=== PATIENT | female | born 1965 | race Hispanic/Latino ===

== ENCOUNTER 2018-01-15 21:41 | Emergency (ER) | payer SELFPAY ==
[~2018-01-15] VITALS: Ht 144.8 cm; Wt 56.0 kg
[2018-01-15] MEDS ORDERED: PERCOCET 5/325M1 TAB PO (22:42)
[2018-01-15] MEDS ORDERED: AMOXICILLIN500 MG PO (22:42)
[2018-01-15 22:50] VITALS: BP 119/74
== END 2018-01-15 23:00 | disposition home or self-care (01) | DRG 159 ==
LOC: ED 21:41
DX: K08.89 Other specified disorders of teeth and supporting structures (principal)

== ENCOUNTER 2018-03-14 00:13 | Observation (INO) | payer SELFPAY ==
[~2018-03-14] VITALS: Ht 144.8 cm; Wt 65.6 kg
[~2018-03-14 00:13] MED LIST: AMOXICILLIN500 MG PO; PERCOCET 5/325M1 TAB PO
--- NOTE | 2018-03-14 00:24 | NUR ---
AMBULATED TO ROOM
[2018-03-14 01:04] LABS: HEMATOCRIT 37.3 % (37.0-47.0); HEMOGLOBIN 13.1 g/dl (12.0-16.0); IMMATURE GRANULOCYTES 0.4 % (0.0-5.0); MEAN CELL VOLUME 91.2 fL CALC (80.0-100.0); MEAN CORPUSCULAR HGB CONC 35.1 g/L CALC (32.0-36.0); NEUT# 3.57 thou/uL (2.00-7.15); RED BLOOD COUNT 4.09 mill/uL (4.20-5.60); RED CELL DISTRI WIDTH 12.8 % (11.5-15.5)
[2018-03-14 01:06] LABS: URINE BILIRUBIN - DIPSTICK NEGATIVE (NEGATIVE); URINE BLOOD DIPSTICK MODERATE (NEGATIVE); URINE COLOR YELLOW; URINE GLUCOSE - DIPSTICK NEGATIVE (NEGATIVE); URINE KETONE NEGATIVE (NEGATIVE); URINE LEUK ESTERASE NEGATIVE (NEGATIVE); URINE NITRITE - DIPSTICK NEGATIVE (Negative); URINE PROTEIN - DIPSTICK NEGATIVE (NEG-TRACE); URINE SPECIFIC GRAVITY <=1.005; URINE UROBILINOGEN - DIPSTICK 0.2 E.U./dL (0.2)
[2018-03-14 01:28] LABS: URINE WBC 0-2 WBC/hpf (0-5)
[2018-03-14 01:42] LABS: ALBUMIN 3.9 g/dL (3.2-5.0); ALKALINE PHOSPHATASE 132 u/l (38-126); AMYLASE 57 u/l (30-110); ANION GAP 15 (6-22 (CALC)); BILIRUBIN, TOTAL 0.2 mg/dL (0.0-1.4); BUN 9 mg/dL (7-17); BUN/CREATININE RATIO 25 (12-20 (CALC)); CARBON DIOXIDE 22 mmol/l (22-30); CHLORIDE 107 mmol/l (95-108); CREATININE 0.4 mg/dL (0.5-1.0); GFR > 60 ML/MIN (>=60 (CALC)); GFR FOR AFR.AMER. > 60 ML/MIN (>=60 (CALC)); LIPASE 102 u/l (23-300); POTASSIUM 3.5 mmol/l (3.5-5.1); SGOT/AST 40 u/l (14-36); SODIUM 140 mmol/l (137-146); TOTAL PROTEIN 7.1 g/dL (6.3-8.2)
--- NOTE | 2018-03-14 01:59 | NUR ---
PT. STATES HER ABD. PAIN IS NOW DECREASED TO A 5 ON A SCALE OF 1-10.
--- NOTE | 2018-03-14 02:59 | NUR ---
PT. RESTING ON STRETCHER, NO C/O AT THIS TIME.
--- NOTE | 2018-03-14 03:59 | NUR ---
IVF INFUSING WELL, NO REDNESS OR EDEMA NOTED.
--- NOTE | 2018-03-14 04:30 | NUR ---
IN ROOM TO DISCUSS CLINICAL FINDINGS WITH PT. AND FAMILY, IN POARCH LANGUAGE OF [place], VERBALIZED UNDERSTANDING.
--- NOTE | 2018-03-14 05:40 | NUR ---
Admission Note Report Given to: BON HAUSER Transported by: Wheelchair X Stretcher Transported with: X Nurse Transporter X Patent IV O2 Formulation Scientist
--- NOTE | 2018-03-14 05:42 | NUR ---
PT. TRANSFERED TO [place] FLOOR VIA STRETCHER, NO C/O.
[2018-03-14 05:46] VITALS: BP 113/67
--- NOTE | 2018-03-14 07:06 | NUR ---
REPORT RECEIVED BY TANESHA. PT IS SLEEPING IN BED WITH NO S/S OF DISTRESS NOTED. FAMILY IN ROOM AND CALL LIGHT IN REACH.
[2018-03-14 08:00] VITALS: BP 91/56
--- NOTE | 2018-03-14 08:39 | NUR ---
ASSESSMENT DONE . RESPS EVEN AND UNLABORED. PT IS A&O X3. PT STATED PAIN IN ABD 07/22 BUT DENIES PAIN MEDICATION AT THIS TIME. NS 125ML/HR INFUSING WELL . PT DENIES NEEDS AT THIS TIME. SAFETY PRECAUTIONS REINFORCED AND CALL LIGHT IN REACH.
--- NOTE | 2018-03-14 12:03 | NUR ---
PT STATED HAS A HEADACHE BUT REFUSED PAIN MEDICATION AT THIS TIME. COOL WASHCLOTH PROVIDED. FAMILY IN ROOM. CALL LIGHT IN REACH.
--- NOTE | 2018-03-14 14:17 | NUR ---
DR. CAMILO AT BEDSIDE TO ASSESS PT.
[2018-03-14 15:41] VITALS: BP 101/63
--- NOTE | 2018-03-14 16:30 | NUR ---
PT IS RESTING IN BED. PT STATED PAIN IS LESS IN HER ABD. PT DENIES NEEDS AT THIS TIME. CALL LIGHT IN REACH.
[2018-03-14 19:10] VITALS: BP 94/57
--- NOTE | 2018-03-14 20:13 | NUR ---
PT RESTING IN BED WITH EYES OPEN. PT DENIES PAIN .POC DISCUSSED WITH PT. BALBIR TO TRANSLATE. NO DISTRESS NOTED. PT VOICED UNDERSTANDING. WILL CONTINUE TO MONITOR.
--- NOTE | 2018-03-15 01:00 | NUR ---
PT RESTING IN BED WITH EYES CLOSED. NO FURTHER COMPLAINTS OF PAIN VOICED. IV PATENT. BED IN LOWEST POSTION. CALLLIGHT IN REACH. FAMILY CAME UP SHORTHLY AFTER MIDNIGHT TO SAY HAPPY NEW YEARS. WILL MONITOR.
--- NOTE | 2018-03-15 04:00 | NUR ---
PT RESTING IN BED WITH EYES CLOSED. NO PAIN OR DISTRESS NOTED. WILL MONITOR.
[2018-03-15 04:04] VITALS: BP 102/59
--- NOTE | 2018-03-15 07:00 | NUR ---
SHIFT REPORT, PT AWAKE ALERT AND ORIENTED, AMBULATE WITH ASSIST TO BR, IVF INFUSING, C/O ABD PAIN WHEN SITTING, STANDING OR AMBULATING BUT FULLY RELIEVED WHEN LYING SUPINE, REPORTED SCANT BM, WILL CONTINUE TO MONITOR, CALL ZAMORA IN REACH.
[2018-03-15 08:10] VITALS: BP 107/49
[2018-03-15] MEDS ORDERED: COLACE100 MG PO (11:33)
--- NOTE | 2018-03-15 13:32 | NUR ---
PT REFUSING TO HAVE SUPPOSITORY AT THIS TIME AND WANTS TO WAIT AND TRY HAVING NORMAL BM, ADVISED OF DELAYS BUT SHE STILL WANTS TO WAIT.
[2018-03-15 16:05] VITALS: BP 94/59
--- NOTE | 2018-03-15 18:46 | NUR ---
Discharge instructions given. Patient verbalizes understanding of same. Discharged in stable condition via Ambulatory to Home with family. All belongings sent with pt.
== END 2018-03-15 18:39 | disposition home or self-care (01) | DRG 390 ==
LOC: ED 00:13 → ED-I 04:55 → ED 05:16 → MS2 05:17
PROVIDERS: Emergency Medicine; ADMIT Internal Medicine; ATTEND Internal Medicine
DX: K56.600 Partial intestinal obstruction, unspecified as to cause (principal); Z87.898 Personal history of other specified conditions
CPT/HCPCS: G0378; S0164

== ENCOUNTER 2019-08-02 13:10 | Observation (INO) | payer SELFPAY ==
[~2019-08-02] VITALS: Ht 152.4 cm; Wt 68.1 kg
[~2019-08-02 13:10] MED LIST changes: +COLACE100 MG PO
--- NOTE | 2019-08-02 13:10 | NUR ---
PT AMB TO ROOM WITH STEADY GAIT
[2019-08-02 13:51] LABS: HEMATOCRIT 35.6 % (37.0-47.0); HEMOGLOBIN 12.1 g/dl (12.0-16.0); IMMATURE GRANULOCYTES 0.2 % (0.0-5.0); MEAN CELL VOLUME 91.5 fL CALC (80.0-100.0); MEAN CORPUSCULAR HGB 31.1 pG CALC (26.0-32.0); NEUT# 3.43 thou/uL (2.00-7.15); RED BLOOD COUNT 3.89 mill/uL (4.20-5.60); RED CELL DISTRI WIDTH 12.4 % (11.5-15.5)
[2019-08-02 14:03] LABS: ALBUMIN 4.1 g/dL (3.2-5.0); ALKALINE PHOSPHATASE 77 u/l (38-126); ANION GAP 10 (6-22 (CALC)); BUN 13 mg/dL (7-17); BUN/CREATININE RATIO 25 (12-20 (CALC)); CARBON DIOXIDE 25 mmol/l (22-30); CHLORIDE 111 mmol/l (95-108); CREATININE 0.5 mg/dL (0.5-1.0); GFR > 60 ML/MIN (>=60 (CALC)); GFR FOR AFR.AMER. > 60 ML/MIN (>=60 (CALC)); LIPASE 56 u/l (23-300); POTASSIUM 3.5 mmol/l (3.5-5.1); SGOT/AST 22 u/l (14-36); SODIUM 142 mmol/l (137-146); TOTAL PROTEIN 7.1 g/dL (6.3-8.2)
[2019-08-02 14:08] LABS: BILIRUBIN, TOTAL 0.3 mg/dL (0.0-1.4)
--- NOTE | 2019-08-02 14:10 | NUR ---
PT RESTING ON STRETCHER; NO S/S OF DISTRESS NOTED; PT DENIES ANY NEEDS AT THIS TIME; VSS; WILL CONTINUE TO MONITOR
[2019-08-02 14:28] LABS: URINE BILIRUBIN - DIPSTICK NEGATIVE (NEGATIVE); URINE BLOOD DIPSTICK MODERATE (NEGATIVE); URINE COLOR YELLOW; URINE GLUCOSE - DIPSTICK NEGATIVE (NEGATIVE); URINE KETONE NEGATIVE (NEGATIVE); URINE LEUK ESTERASE NEGATIVE (NEGATIVE); URINE NITRITE - DIPSTICK NEGATIVE (Negative); URINE PH 5.5 (4.5-8.0); URINE PROTEIN - DIPSTICK NEGATIVE (NEG-TRACE); URINE SPECIFIC GRAVITY >=1.030; URINE UROBILINOGEN - DIPSTICK 0.2 E.U./dL (0.2)
[2019-08-02 14:37] LABS: URINE SQUAMOUS EPITHELIAL CELL FEW EPI/hpf (0-FEW)
--- NOTE | 2019-08-02 15:10 | NUR ---
PT RESTING ON STRETCHER WITH EYES CLOSED; WILL CONTINUE TO MONITOR
--- NOTE | 2019-08-02 15:42 | NUR ---
PT RESTING ON STRETCHER; NO S/S OF DISTRESS NOTED; PT STATES WILEY IS BETTER AT THIS TIME; VSS; ADVISED OF CONTINUED WAIT TIME; WILL CONTINUE TO MONITOR
--- NOTE | 2019-08-02 16:37 | NUR ---
DR GRUBBS AT BEDSIDE TO DISCUSS POC AND FINDINGS
--- NOTE | 2019-08-02 17:20 | NUR ---
Admission Note Report Given to: CHELSEA RASHEED Transported by: X Wheelchair Stretcher Transported with: X Nurse Transporter X Patent IV O2 X Cans Vacuum Tester Location: ICU X MS2
--- NOTE | 2019-08-02 17:20 | NUR ---
PT ARRIVED TO MED/SURG ROOM 289 IN STABLE CONDITION VIA WHEELCHAIR ACCOMPANIED BY ANALISA AVENDAÑO;PT A&O X3,ROMANIAN SPEAKING;TRANSLATION PROVIDED BY CHELSEA VERONICA;PT DENIES ANY CURRENT PAIN OR DISCOMFORTS,PAIN SCALE AND REPORTING EDUCATED;RESPIRATIONS EVEN AND UNLABORED ON RA,CLEAR LUNG SOUNDS;ABDOMEN SOFT ON PALPATION AND ACTIVE IN ALL 4 QUADRANTS;STRONG PEDAL PULSES;SKIN INTACT;TELE MONITORING IN PLACE;#20G TO LAC FLUSHED AND PATENT,NS TO BE STARTED TO 100ML/HR PER ORDER;ALL SAFETY PRECAUTIONS IN PLACE INCLUDING ISOLATION PRECAUTIONS R/T COVID 19;PT DENIES ANY ADDITIONAL NEEDS AT THIS TIME AND IS ENCOURAGED TO CALL FOR ASSISTANCE IF NEEDED;FALL PRECAUTIONS IN PLACE WITH BED IN THE LOWEST POSITION AND CALL LIGHT IN REACH;WILL CONTINUE TO MONITOR
[2019-08-02 18:16] VITALS: BP 103/59
--- NOTE | 2019-08-02 21:00 | NUR ---
ASSESSMENT COMPLETED. IV SITE PATENT AND ORDERED IVF INFUSING WELL. NO DISTRESS NOTED; PO FLUIDS GIVEN. PT. DENIES NEEDS/PAIN. TROPONIN OBTAINED PER ORDER. TELEMETRY IN PLACE. VSS. ENCOURAGED TO CALL FOR ANY NEED.S UPDATED ON POC.
[2019-08-02 21:01] VITALS: BP 101/57
[2019-08-02 23:55] VITALS: BP 106/57
--- NOTE | 2019-08-03 | NUR ---
PT. RESTING IN BED WITH EYES OPEN AND C/O WILEY AND MEDICATED WITH ORDERED TYLENOL, WILL REASSESS. VSS. ENCOURAGED TO CALL FOR ANY NEEDS. CALL LIGHT IS IN REACH.
--- NOTE | 2019-08-03 02:35 | NUR ---
PT. RESTING IN BED WITH NO DISTRESS NOTED; DENIES NEEDS/PAIN. SCHED AM LABS DRAWN PER ORDER. ENCOURAGED TO CALL FOR ANY NEEDS. CALL LIGHT IS IN REACH.
[2019-08-03 02:47] LABS: HEMATOCRIT 33.9 % (37.0-47.0); HEMOGLOBIN 11.4 g/dl (12.0-16.0); IMMATURE GRANULOCYTES 0.1 % (0.0-5.0); MEAN CELL VOLUME 92.1 fL CALC (80.0-100.0); MEAN CORPUSCULAR HGB CONC 33.6 g/dL CAL (32.0-36.0); NEUT# 3.2 thou/uL (2.00-7.15); RED BLOOD COUNT 3.68 mill/uL (4.20-5.60); RED CELL DISTRI WIDTH 12.3 % (11.5-15.5)
[2019-08-03 03:00] LABS: ALBUMIN 3.4 g/dL (3.2-5.0); ALKALINE PHOSPHATASE 74 u/l (38-126); ANION GAP 9 (6-22 (CALC)); BILIRUBIN, TOTAL 0.2 mg/dL (0.0-1.4); BUN 11 mg/dL (7-17); BUN/CREATININE RATIO 23 (12-20 (CALC)); CALCULATED LDLCHOLESTEROL 68 mg/dL (62-129 (CALC)); CARBON DIOXIDE 23 mmol/l (22-30); CHLORIDE 112 mmol/l (95-108); CHOLESTEROL HDL RATIO 5.6 (<4.4 (CALC)); CREATININE 0.5 mg/dL (0.5-1.0); GFR > 60 ML/MIN (>=60 (CALC)); GFR FOR AFR.AMER. > 60 ML/MIN (>=60 (CALC)); HDL CHOLESTEROL 25 mg/dL (>=40); POTASSIUM 3.8 mmol/l (3.5-5.1); SGOT/AST 23 u/l (14-36); SODIUM 140 mmol/l (137-146); TOTAL CHOLESTEROL 139 mg/dl (0-199); TOTAL PROTEIN 6.1 g/dL (6.3-8.2); TOTAL TRIGLYCERIDES 232 mg/dl (30-149); VLDL CHOLESTROL 46 mg/dl (2-49 (CALC))
[2019-08-03 04:27] LABS: C-REACTIVE PROTEIN < 0.5 mg/dL (0-0.9); MAGNESIUM 1.9 mg/dL (1.6-2.3)
[2019-08-03 04:30] VITALS: BP 105/55
--- NOTE | 2019-08-03 05:10 | NUR ---
LAB OBTAINED. DENIES NEEDS/PAIN. ENCOURAGED TO CALL FOR ANY NEEDS.
[2019-08-03 09:14] VITALS: BP 107/60
--- NOTE | 2019-08-03 09:14 | NUR ---
RECIEVED REPORT FROM ANALISA REESE. PT RESTING IN SEMI FOWLERS POSITION WATCHING TV UPON ENTERING THE ROOM. INTRODUCED SELF TO PT AND DISCUSSED POC. PT IS A/O X3 AND AMBULARTORY. PT IS [place]ET[place]ESE SPEKAING. HEART RHYTHM NORMAL, LUNG SOUNDS CLEAR, AND BOWEL SOUNDS ACTIVE IN ALL QUADRANTS. VITALS OBTAINED. BP 107/60, HR 58, AND O2 97% ON ROOM AIR. PT COMPLAINED OF A 2/10 HEADACHE. TYLENOL WAS ADMINISTERED.RADILAL AND PEDAL PULSES ARE STRONG WITH NORMAL CAPILLARY REFILLS. NO EDEMA IN ANY EXTREMIEITES. PT DENIES ANY OTHER PAINS OR DISCOMFORTS AT THIS TIME. ALL SAFTEY PRECAUTIONS IN PLACE WITH CALL LIGHT IN REACH. WILL CONTINUE TO MONITOR PAIN AND PT.
[2019-08-03 10:55] VITALS: BP 103/60
--- NOTE | 2019-08-03 12:00 | NUR ---
PT RESTING IN SEMI FOWLERS POSITION. PT EXPRESSES THAT TYLENOL DID WORK. BREATHING IS EVEN AND UNLABORED. PT DENIES ANY OTHER PAINS OR DISCOMFORTS AT THIS TIME. ALL SAFTEY PRECAUTIONS IN PLACE WITH CALL LIGHT IN REACH.
[2019-08-03 15:21] VITALS: BP 105/57
--- NOTE | 2019-08-03 16:15 | NUR ---
DISCHARGE INSTRUCTIONS AND EDUCATION GIVEN TO PT, TRANSLATED BY CHELSEA RIVERA. PT VERBALIZED UNDERSTANDING. IV REMOVED AT THIS TIME, PT TOLERATED WELL. WAITING FOR RIDE. ALL SAFTEY PRECAUTIONS IN PLACE WITH CALL LIGHT IN REACH. WILL CONTINUE TO MONITOR.
--- NOTE | 2019-08-03 17:16 | NUR ---
Discharge instructions given. Patient verbalizes understanding of same. Discharged in stable condition via Wheelchair to Home with family. All belongings sent with pt. PT LEFT VIA WHEELCHAIR IN STABLE CONDITION ACCOMPAINED BY CHELSEA WATSON. PT LEFT WITH ALL BELONGINGS AND DISCHARGE INSTRUCTIONS.
--- NOTE | 2019-08-06 08:58 | NUR ---
Patient called with results of test. Sylwia Wellington approved on language list interpreted instructions. patient verbally acknowledged instructions and thanked staff for informing her. Isolation/quarantine means to stay separate from other people, so that sickness You have been tested for the virus that causes COVID-19, you must stay at home and isolate yourself until the test results are returned. Isolation/quarantine means to stay separate from other people, so that sickness is not spread. Depending on your test results, you will either be allowed to return to regular activity, or will have to continue isolation/quarantine until the Health Department instructs you to stop. Follow these guidelines while in isolation: Stay home: Stay in your home or apartment until you are instructed that you can leave. If you need medical care, call ahead so that staff can prepare for your arrival. DO NOT go to your doctors office, an ER or urgent care center without informing them that you are coming, and that you have the coronavirus or have been tested. (Call 911 if you have a medical emergency, and tell them you may have coronavirus.) Avoid public areas: Do not go to work, school or any public areas. This includes, but is not limited to, activities such as going to the grocery store, walking the dog, visiting the laundromat, going to the movies, picking up food, and attending yazidism. STAY HOME!!!!! Having a negative test does not mean you can't still catch Covid-19. Please continue to comply with social distancing guidelines, hand hygiene, and wearing masks in public as directed by the CDC.
== END 2019-08-03 17:16 | disposition home or self-care (01) | DRG 179 ==
LOC: ED 13:10 → ED-I 15:40 → ED 16:30 → ED-I 16:31 → MS2 17:04
PROVIDERS: Family Medicine; Nurse Practitioner Family; ADMIT Internal Medicine; ATTEND Internal Medicine
DX: U07.1 COVID-19 (principal); R07.9 Chest pain, unspecified; I10 Essential (primary) hypertension
CPT/HCPCS: G0378; Q9967

== ENCOUNTER 2019-10-01 01:20 | Emergency (ER) | payer SELFPAY ==
[~2019-10-01] VITALS: Ht 147.3 cm; Wt 68.1 kg
[2019-10-01 02:19] LABS: HEMOGLOBIN 12.1 g/dl (12.0-16.0); IMMATURE GRANULOCYTES 0.1 % (0.0-5.0); MEAN CELL VOLUME 91.8 fL CALC (80.0-100.0); MEAN CORPUSCULAR HGB 30.9 pG CALC (26.0-32.0); MEAN CORPUSCULAR HGB CONC 33.6 g/dL CAL (32.0-36.0); NEUT# 3.78 thou/uL (2.00-7.15); RED BLOOD COUNT 3.92 mill/uL (4.20-5.60); RED CELL DISTRI WIDTH 12.4 % (11.5-15.5)
[2019-10-01 02:20] LABS: URINE BILIRUBIN - DIPSTICK NEGATIVE (NEGATIVE); URINE BLOOD DIPSTICK TRACE-INTACT (NEGATIVE); URINE COLOR YELLOW; URINE GLUCOSE - DIPSTICK NEGATIVE (NEGATIVE); URINE KETONE NEGATIVE (NEGATIVE); URINE LEUK ESTERASE TRACE (NEGATIVE); URINE NITRITE - DIPSTICK NEGATIVE (Negative); URINE PROTEIN - DIPSTICK TRACE mg/dL (NEG-TRACE); URINE SPECIFIC GRAVITY >=1.030; URINE UROBILINOGEN - DIPSTICK 0.2 E.U./dL (0.2)
[2019-10-01 02:32] LABS: ALKALINE PHOSPHATASE 95 u/l (38-126); ANION GAP 11 (6-22 (CALC)); BUN 20 mg/dL (7-17); BUN/CREATININE RATIO 34 (12-20 (CALC)); C-REACTIVE PROTEIN 0.8 mg/dL (0-0.9); CARBON DIOXIDE 27 mmol/l (22-30); CHLORIDE 105 mmol/l (95-108); CREATININE 0.6 mg/dL (0.5-1.0); GFR > 60 ML/MIN (>=60 (CALC)); GFR FOR AFR.AMER. > 60 ML/MIN (>=60 (CALC)); MAGNESIUM 2.3 mg/dL (1.6-2.3); POTASSIUM 3.8 mmol/l (3.5-5.1); SGOT/AST 31 u/l (14-36); SODIUM 139 mmol/l (137-146)
[2019-10-01 02:33] LABS: ALBUMIN 4.4 g/dL (3.2-5.0); BILIRUBIN, TOTAL 0.3 mg/dL (0.0-1.4); TOTAL PROTEIN 7.7 g/dL (6.3-8.2)
[2019-10-01 02:40] VITALS: BP 90/51
== END 2019-10-01 02:50 | disposition home or self-care (01) | DRG 866 ==
LOC: ED 01:20
PROVIDERS: Family Medicine
DX: B34.9 Viral infection, unspecified (principal); I10 Essential (primary) hypertension; Z86.19 Personal history of other infectious and parasitic diseases

== ENCOUNTER 2019-11-26 21:42 | Emergency (ER) | payer SELFPAY ==
[~2019-11-26] VITALS: Ht 147.3 cm; Wt 61.6 kg
[2019-11-26 22:35] LABS: HEMATOCRIT 36.2 % (37.0-47.0); HEMOGLOBIN 12.2 g/dl (12.0-16.0); IMMATURE GRANULOCYTES 0.1 % (0.0-5.0); MEAN CELL VOLUME 91.6 fL CALC (80.0-100.0); MEAN CORPUSCULAR HGB 30.9 pG CALC (26.0-32.0); MEAN CORPUSCULAR HGB CONC 33.7 g/dL CAL (32.0-36.0); NEUT# 2.74 thou/uL (2.00-7.15); RED BLOOD COUNT 3.95 mill/uL (4.20-5.60)
[2019-11-26 22:49] LABS: D-DIMER 0.36 mg/L (0.19-0.60)
[2019-11-26 22:53] LABS: ALBUMIN 4.5 g/dL (3.2-5.0); ALKALINE PHOSPHATASE 102 u/l (38-126); AMYLASE 58 u/l (30-110); ANION GAP 11 (6-22 (CALC)); BILIRUBIN, TOTAL 0.3 mg/dL (0.0-1.4); BUN 10 mg/dL (7-17); BUN/CREATININE RATIO 17 (12-20 (CALC)); C-REACTIVE PROTEIN 0.7 mg/dL (0-0.9); CARBON DIOXIDE 25 mmol/l (22-30); CHLORIDE 105 mmol/l (95-108); CPK 72 u/l (30-165); CREATININE 0.6 mg/dL (0.5-1.0); GFR > 60 ML/MIN (>=60 (CALC)); GFR FOR AFR.AMER. > 60 ML/MIN (>=60 (CALC)); LIPASE 71 u/l (23-300); MAGNESIUM 2.3 mg/dL (1.6-2.3); POTASSIUM 3.8 mmol/l (3.5-5.1); SGOT/AST 27 u/l (14-36); SODIUM 137 mmol/l (137-146); TOTAL PROTEIN 7.3 g/dL (6.3-8.2)
[2019-11-26 23:03] LABS: MYOGLOBIN 14 ng/mL (0 - 62)
[2019-11-26 23:21] LABS: TSH, 3RD GENERATION 2.35 uIU/mL (0.47 - 4.68)
[2019-11-26 23:27] LABS: ACT PARTIAL THROMBO TIME 27.5 SECONDS (20.0-32.5); PROTHROMBIN TIME 10.4 SECONDS (9.0-12.5)
[2019-11-27] MEDS ORDERED: VOLTAREN - GENE75 MG PO (00:02)
[2019-11-27 00:30] VITALS: BP 140/67
== END 2019-11-27 00:30 | disposition home or self-care (01) | DRG 313 ==
LOC: ED 21:42
PROVIDERS: Family Medicine
DX: R07.89 Other chest pain (principal); M79.10 Myalgia, unspecified site; M25.50 Pain in unspecified joint; I10 Essential (primary) hypertension; Z86.19 Personal history of other infectious and parasitic diseases

== ENCOUNTER 2020-08-18 23:37 | Observation (INO) | payer SELFPAY ==
[~2020-08-18] VITALS: Ht 152.4 cm; Wt 65.0 kg
[~2020-08-18 23:37] MED LIST changes: +VOLTAREN - GENE75 MG PO
--- NOTE | 2020-08-18 23:38 | NUR ---
BY EMS TO ROOM
--- NOTE | 2020-08-19 00:20 | NUR ---
PATIENT REPORTS WORKING IN THE [employer] FOR PAST 3 MONTHS AND SYMPTOMS SEEM RO BE GETTING WORSE SINCE GETTING WET DURING IRRIGATION OF THE [employer]
[2020-08-19 00:21] LABS: HEMATOCRIT 35.5 % (37.0-47.0); HEMOGLOBIN 11.8 g/dl (12.0-16.0); IMMATURE GRANULOCYTES 0.2 % (0.0-5.0); MEAN CELL VOLUME 92.4 fL CALC (80.0-100.0); MEAN CORPUSCULAR HGB 30.7 pG CALC (26.0-32.0); MEAN CORPUSCULAR HGB CONC 33.2 g/dL CAL (32.0-36.0); NEUT# 4.7 thou/uL (2.00-7.15); RED BLOOD COUNT 3.84 mill/uL (4.20-5.60)
[2020-08-19 00:39] LABS: ALKALINE PHOSPHATASE 99 u/l (38-126); ANION GAP 11 (6-22 (CALC)); BUN 23 mg/dL (7-17); BUN/CREATININE RATIO 40 (12-20 (CALC)); CARBON DIOXIDE 26 mmol/l (22-30); CHLORIDE 106 mmol/l (95-108); CREATININE 0.6 mg/dL (0.5-1.0); GFR > 60 ML/MIN (>=60 (CALC)); GFR FOR AFR.AMER. > 60 ML/MIN (>=60 (CALC)); MAGNESIUM 2.2 mg/dL (1.6-2.3); POTASSIUM 3.4 mmol/l (3.5-5.1); SGOT/AST 30 u/l (14-36); SODIUM 139 mmol/l (137-146); TOTAL PROTEIN 7.2 g/dL (6.3-8.2)
[2020-08-19 00:51] LABS: BILIRUBIN, TOTAL 0.1 mg/dL (0.0-1.4)
[2020-08-19 01:00] LABS: MYOGLOBIN 14 ng/mL (0 - 62)
[2020-08-19 01:26] LABS: D-DIMER 0.44 mg/L (0.19-0.60); PROTHROMBIN TIME 10.7 SECONDS (9.0-12.5)
--- NOTE | 2020-08-19 03:00 | NUR ---
PATIENT BEING ADMITTED TO BE HOUSED IN ER OVER NIGHT.
[2020-08-19 04:18] VITALS: BP 96/58
--- NOTE | 2020-08-19 05:25 | NUR ---
RESTING WITH EYES CLOSED. NO DISTRESS. NO COMPLAINTS.
--- NOTE | 2020-08-19 06:37 | NUR ---
WARM BLANKETS PROVIDED. PT C/O BEING COLD. TELE BOX [id number] IN USE
--- NOTE | 2020-08-19 06:41 | NUR ---
RECIEVED REPORT FROM ANALISA SMITH
--- NOTE | 2020-08-19 06:42 | NUR ---
REPORT GIVEN TO LYNNE Lizarraga LPN FOR ADMIT TO FLOOR.
--- NOTE | 2020-08-19 06:56 | NUR ---
REPORT GIVEN TO ANALISA VALIENTE IN ER- AWAITING BED ASSIGNMENT FOR FLOOR.
--- NOTE | 2020-08-19 07:00 | NUR ---
REPORT RECEIVED FROM ANALISA SMITH. PT GIDEON. AWAITING ROOM ASSIGNMENT.
--- NOTE | 2020-08-19 08:05 | NUR ---
PT CONSUMED BREAKFAST, VITALS STABLE, TELE IN PLACE, REPORT GIVEN ON PRIOR SHIFT TO [facility].
--- NOTE | 2020-08-19 08:20 | NUR ---
PT ARRIVED TO [facility] ROOM 279 IN STABLE CONDITION. PT IS A/O X3. AND BANGLADESHI SPEAKING ONLY. [facility] STAFF TO ASSIST WITH TRANSLATION. ASSESSMENT AND VITALS COMPLETED. BP 95/47, HR 64, O2 92% ON ROOM AIR. REPSIRATIONS ARE EVEN AND UNLABORED WITH NO DISTRESS NOTED. LUNG SOUNDS CLEAR. HEART RHYTHM NORMAL WITH TELE IN PLACE. BOWEL SOUNDS ARE ACTIVE. #20G EMS LAC FLUSHED, SITE APPEARS HEALTHY AND PATENT. SKIN INTACT. RADIAL AND PEDAL PULSES STRONG. PT COMPLAINS OF 6/10 HEADACHE, ORDERS TO BE OBTAINED.NITRO PASTE REMOVED. PT DENIES OF ANY OTHR NEEDS AT THIS TIME. ALL SAFETY PRECAUTIONS ARE IN PLACE WITH CALL LIGHT IN REACH. WILL CONTINUE TO MONITOR.
[2020-08-19 08:41] VITALS: BP 95/47
--- NOTE | 2020-08-19 10:30 | NUR ---
LAB AT BEDSIDE
[2020-08-19 10:50] VITALS: BP 95/53
--- NOTE | 2020-08-19 11:42 | NUR ---
DR VAZQUEZ AT BEDSIDE
--- NOTE | 2020-08-19 12:05 | NUR ---
PT SIITING UP ON SIDE OF BED EATING LUNCH. RESPIRATIONS ARE EVEN AND UNLABORED ON ROOM AIR. #20G IN LAC REMAINS. TELE MONITORING IN PLACE. PT C/O OF GENERALIZED PAIN. PT TO BE MEDICATED PER EMAR. PT DENIES OF ANY ADDITIONAL NEEDS AT THIS TIME. ALL SAFETY PRECAUTIONS ARE IN PLACE WITH CALL LIGHT IN REACH. WILL CONTINUE TO MONITOR.
--- NOTE | 2020-08-19 14:20 | NUR ---
REASSESSMENT OF PAIN RESULTING IN 2. PT STATES MEDICATION HAS HELPED. DENNIS ASSSITED WITH TRANSLATION OVER THE PHONE.
--- NOTE | 2020-08-19 14:29 | NUR ---
LAB AT BEDSIDE
[2020-08-19 15:00] VITALS: BP 111/63
--- NOTE | 2020-08-19 16:33 | NUR ---
PT RESTING IN SEMI FOWLERS POSITION WITH VISITOR AT BEDSIDE. #20G LAC REMAINS IN PLACE, SITE APPEARS HEALTHY AND PATENT. RESPIRATIONS ARE EVEN AND UNLABORED WITH NO DISTRESS NOTED. TELE MONITORING IN PLACE. PT DENIES OF ANY NEEDS AT THIS TIME. ALL SAFTEY PRECAUTIONS ARE IN PLACE WITH CALL LIGHT IN REACH. WILL CONTINUE TO MONITOR.
--- NOTE | 2020-08-19 17:10 | NUR ---
#20G RAC REMOVED WITH CATHATER STILL INTACT. #20G RC STARTED, SITE APPEARS HEALTHY AND PATENT.
[2020-08-19 19:00] VITALS: BP 105/60
--- NOTE | 2020-08-19 19:00 | NUR ---
RECIEVED REPORT FROM NURSE ARAVIND, PATIENT RESTING AWAKE BREATHING UNLABORED. CURRENTLY WATCHING TV, ASSUMED PATIENT CARE.
--- NOTE | 2020-08-19 21:00 | NUR ---
PATIENT RESTING IN BED, WITH SALINE LOCK ON RAC PATENT FLUSHES WELL, REMAINS ON TELEMETRY SR 82, LUNG SOUNDS CLEAR, STATED THAT INTENSITY OF PAIN "POQUITO" PAINSCALE OF 2/10, RELIEF FROM EARLIER PAIN MEDICATION, ACTIVE BOWEL SOUNDS ON ALL QUADRANTS LBM 6/7, WILL CONTINUE TO MONITOR.
--- NOTE | 2020-08-19 23:55 | NUR ---
PATIENT RESTING IN BED WITH EYES CLOSED, BREATHING EVEN UNLABORED, CALL LIGHT AT REACH.
[2020-08-20] VITALS: BP 102/55
--- NOTE | 2020-08-20 03:46 | NUR ---
PATIENT APPEARS TO BE SLEEPING WITH EYES CLOSED, BREATHING EVEN UNLABORED, NO DISCOMFORTS NOTED AT THIS TIME CALL LIGHT AT REACH.
[2020-08-20 04:00] VITALS: BP 92/57
[2020-08-20 05:17] LABS: CHOLESTEROL HDL RATIO 6.2 (<4.4 (CALC))
[2020-08-20 07:30] VITALS: BP 95/51
--- NOTE | 2020-08-20 07:37 | NUR ---
REPORT REC FROM Epifanio FRANCISCO RN. PT SLEEPING IN BED. AWAKENED TO COMPLETE ASSESSMENT. A&O X4. NO DISTRESS NOTED. PT DENIES ANY CURRENT CP AT THIS TIME. HOSPITAL ADMISSIONS OFFICER IN PLACE, CURRENTLY SB WITH A RATE OF 57 BPM. RESPIRATIONS EVEN AND UNLABORED. CLEAR BREATH SOUNDS UPON AUSCULTATION. ACTIVE BOWEL SOUNDS X4 QUADRANTS. #20 RAC HEALTHY AND PATENT, FLUSHES WITH EASE. ASSESSMENT COMPLETED. NO OTHER NEEDS AT THIS TIME. DISCUSSED POC. CALL LIGHT AND PERSONAL BELONGINGS WITHIN REACH.
[2020-08-20 10:58] VITALS: BP 96/54
[2020-08-20] MEDS ORDERED: MEDDOSEPAK PO (11:32)
[2020-08-20] MEDS ORDERED: IBUPROFEN600 MG PO (11:32)
--- NOTE | 2020-08-20 11:59 | NUR ---
PT LAYING IN BED. NO DISTRESS NOTED. CALL LIGHT WITHIN REACH.
[2020-08-20 15:24] VITALS: BP 97/54
--- NOTE | 2020-08-20 16:25 | NUR ---
PT UPDATED ON D/C PLANNING, PER PT HER RIDE HOME WILL BE AVAILABLE AFTER 1700. NO OTHER NEEDS AT THIS TIME. CALL LIGHT WITHIN REACH.
--- NOTE | 2020-08-20 18:10 | NUR ---
PT UPDATED THIS WRITTER REGARING TRANSPORTATION. PER PT TRANSPORTATION WILL BE ON THEIR WAY.
--- NOTE | 2020-08-20 18:20 | NUR ---
Discharge instructions given. Patient verbalizes understanding of same. Discharged in stable condition via Wheelchair to Home with staff. All belongings sent with pt.
== END 2020-08-20 18:20 | disposition home or self-care (01) | DRG 313 ==
LOC: ED 23:37 → ED-I 08-19 02:37 → ED 08-19 02:48 → ED-I 08-19 02:49 → MS2 08-19 07:43
PROVIDERS: Family Medicine; ADMIT Internal Medicine; ATTEND Internal Medicine
DX: R07.89 Other chest pain (principal); M25.50 Pain in unspecified joint; M79.10 Myalgia, unspecified site; I10 Essential (primary) hypertension; Z86.16 Personal history of COVID-19; Z20.822 Contact with and (suspected) exposure to COVID-19
CPT/HCPCS: G0378; J1650

== ENCOUNTER 2020-10-11 15:29 | Emergency (ER) | payer OTHER ==
[~2020-10-11] VITALS: Ht 152.4 cm; Wt 59.0 kg
[~2020-10-11 15:29] MED LIST changes: +IBUPROFEN600 MG PO; +MEDDOSEPAK PO
[2020-10-11 16:24] LABS: HEMATOCRIT 34.6 % (37.0-47.0); HEMOGLOBIN 11.7 g/dl (12.0-16.0); IMMATURE GRANULOCYTES 0.1 % (0.0-5.0); MEAN CELL VOLUME 92.8 fL CALC (80.0-100.0); MEAN CORPUSCULAR HGB 31.4 pG CALC (26.0-32.0); MEAN CORPUSCULAR HGB CONC 33.8 g/dL CAL (32.0-36.0); NEUT# 4.86 thou/uL (2.00-7.15); RED BLOOD COUNT 3.73 mill/uL (4.20-5.60); RED CELL DISTRI WIDTH 12.8 % (11.5-15.5)
[2020-10-11 16:24] LABS: URINE BILIRUBIN - DIPSTICK NEGATIVE (NEGATIVE); URINE BLOOD DIPSTICK SMALL (NEGATIVE); URINE COLOR YELLOW; URINE GLUCOSE - DIPSTICK NEGATIVE (NEGATIVE); URINE KETONE NEGATIVE (NEGATIVE); URINE LEUK ESTERASE NEGATIVE (NEGATIVE); URINE PH 5.5 (4.5-8.0); URINE PROTEIN - DIPSTICK NEGATIVE (NEG-TRACE); URINE SPECIFIC GRAVITY >=1.030; URINE UROBILINOGEN - DIPSTICK 0.2 E.U./dL (0.2)
[2020-10-11 16:26] LABS: URINE NITRITE - DIPSTICK NEGATIVE (Negative)
[2020-10-11 16:34] LABS: URINE SQUAMOUS EPITHELIAL CELL FEW EPI/hpf (0-FEW)
[2020-10-11 16:45] LABS: ALBUMIN 4.3 g/dL (3.2-5.0); ALKALINE PHOSPHATASE 78 u/l (38-126); AMYLASE 58 u/l (30-110); ANION GAP 12 (6-22 (CALC)); BILIRUBIN, TOTAL 0.2 mg/dL (0.0-1.4); BUN 14 mg/dL (7-17); BUN/CREATININE RATIO 25 (12-20 (CALC)); CARBON DIOXIDE 26 mmol/l (22-30); CHLORIDE 102 mmol/l (95-108); CREATININE 0.6 mg/dL (0.5-1.0); GFR > 60 ML/MIN (>=60 (CALC)); GFR FOR AFR.AMER. > 60 ML/MIN (>=60 (CALC)); LIPASE 97 u/l (23-300); POTASSIUM 3.8 mmol/l (3.5-5.1); SGOT/AST 26 u/l (14-36); SODIUM 136 mmol/l (137-146); TOTAL PROTEIN 7.3 g/dL (6.3-8.2)
[2020-10-11] MEDS ORDERED: CYCLOBENZAPRINE10 MG PO (18:22)
[2020-10-11 18:43] VITALS: BP 114/68
== END 2020-10-11 18:44 | disposition home or self-care (01) | DRG 563 ==
LOC: ED 15:29
DX: S39.011A Strain of muscle, fascia and tendon of abdomen, initial encounter (principal); I10 Essential (primary) hypertension; X50.0XXA Overexertion from strenuous movement or load, initial encounter; Y93.H9 Activity, other involving exterior property and land maintenance, building and construction; Y92.73 Farm field as the place of occurrence of the external cause; Y99.0 Civilian activity done for income or pay; Z86.16 Personal history of COVID-19

== ENCOUNTER 2021-02-23 23:05 | Emergency (ER) | payer SELFPAY ==
[~2021-02-23] VITALS: Ht 152.4 cm; Wt 57.2 kg
[~2021-02-23 23:05] MED LIST changes: +CYCLOBENZAPRINE10 MG PO
[2021-02-24] MEDS ORDERED: NAPROXEN500 MG PO (00:47)
[2021-02-24 01:03] VITALS: BP 129/67
== END 2021-02-24 01:14 | disposition home or self-care (01) | DRG 605 ==
LOC: ED 23:05
DX: S00.83XA Contusion of other part of head, initial encounter (principal); I10 Essential (primary) hypertension; V03.00XA Pedestrian on foot injured in collision with car, pick-up truck or van in nontraffic accident, initial encounter; Y92.007 Garden or yard of unspecified non-institutional (private) residence as the place of occurrence of the external cause; Z86.16 Personal history of COVID-19

== ENCOUNTER 2022-01-17 19:49 | Emergency (ER) | payer SELFPAY ==
[~2022-01-17] VITALS: Ht 149.9 cm; Wt 60.0 kg
[~2022-01-17 19:49] MED LIST changes: +NAPROXEN500 MG PO
[2022-01-17 22:30] LABS: HEMATOCRIT 39.5 % (37.0-47.0); HEMOGLOBIN 13.2 g/dl (12.0-16.0); IMMATURE GRANULOCYTES 0.1 % (0.0-5.0); MEAN CELL VOLUME 92.3 fL CALC (80.0-100.0); MEAN CORPUSCULAR HGB 30.8 pG CALC (26.0-32.0); MEAN CORPUSCULAR HGB CONC 33.4 g/dL CAL (32.0-36.0); NEUT# 4.25 thou/uL (2.00-7.15); RED BLOOD COUNT 4.28 mill/uL (4.20-5.60); RED CELL DISTRI WIDTH 12.5 % (11.5-15.5)
[2022-01-17 22:41] LABS: ALBUMIN 4.3 g/dL (3.2-5.0); ALKALINE PHOSPHATASE 94 u/l (38-126); ANION GAP 14 (6-22 (CALC)); BUN 11 mg/dL (7-17); BUN/CREATININE RATIO 19 (12-20 (CALC)); CARBON DIOXIDE 24 mmol/l (22-30); CHLORIDE 106 mmol/l (95-108); CREATININE 0.6 mg/dL (0.5-1.0); GFR FOR AFR.AMER. > 60 ML/MIN (>=60 (CALC)); GFR OTHER RACES > 60 ML/MIN (>=60 (CALC)); LIPASE 54 u/l (23-300); POTASSIUM 3.7 mmol/l (3.5-5.1); SGOT/AST 41 u/l (14-36); SODIUM 141 mmol/l (137-146); TOTAL PROTEIN 7.7 g/dL (6.3-8.2)
[2022-01-17 22:42] LABS: BILIRUBIN, TOTAL 0.3 mg/dL (0.0-1.4)
[2022-01-17 22:45] LABS: URINE BILIRUBIN - DIPSTICK NEGATIVE (NEGATIVE); URINE BLOOD DIPSTICK MODERATE (NEGATIVE); URINE COLOR YELLOW; URINE GLUCOSE - DIPSTICK NEGATIVE (NEGATIVE); URINE KETONE TRACE mg/dL (NEGATIVE); URINE LEUK ESTERASE NEGATIVE (NEGATIVE); URINE PROTEIN - DIPSTICK NEGATIVE (NEG-TRACE); URINE UROBILINOGEN - DIPSTICK 0.2 E.U./dL (0.2)
[2022-01-17 22:46] LABS: URINE NITRITE - DIPSTICK NEGATIVE (Negative)
[2022-01-17 22:55] LABS: URINE BACTERIA FEW hpf; URINE SQUAMOUS EPITHELIAL CELL FEW EPI/hpf (0-FEW)
[2022-01-18] MEDS ORDERED: CITRATE OF MEGNESIA PO (00:07)
[2022-01-18] MEDS ORDERED: MIRALAX17 GM PO (00:07)
[2022-01-18 00:24] VITALS: BP 98/62
== END 2022-01-18 00:35 | disposition home or self-care (01) | DRG 392 ==
LOC: ED 19:49
PROVIDERS: Family Medicine
DX: K59.00 Constipation, unspecified (principal); I10 Essential (primary) hypertension; Z86.16 Personal history of COVID-19